=== PATIENT | female | born 1965 | race Caucasian/White ===

== ENCOUNTER 2019-08-14 00:56 | Emergency (ER) | payer MEDICAID ==
--- NOTE | 2019-08-14 01:17 | NUR ---
PATIENT LEFT WITHOUT BEING SEEN BY DR. MADRIGAL. NO FURTHER CARE PROVIDED FOR PATIENT.
== END 2019-08-14 01:17 | disposition left against medical advice (07) ==
LOC: MED 00:56
DX: Z53.21 Procedure and treatment not carried out due to patient leaving prior to being seen by health care provider (principal)